=== PATIENT | female | born 1995 | race Caucasian/White ===

== ENCOUNTER 2016-10-05 16:22 | Emergency (ER) | payer MEDICAID ==
[2016-10-05 17:40] LABS: APPEARANCE CLEAR (CLEAR); COLOR YELLOW (YELLOW); GLUCOSE NEGATIVE (NEGATIVE); KETONE NEGATIVE (NEGATIVE); LEUKOCYTE ESTERASE TRACE (NEGATIVE); NITRITE NEGATIVE (NEGATIVE); PROTEIN NEGATIVE (NEGATIVE); UROBILINOGEN NORMAL (NORMAL)
[2016-10-05 17:41] LABS: BACTERIA FEW /hpf (NONE SEEN); BILIRUBIN NEGATIVE (NEGATIVE); EPITHELIAL CELLS 0-5 /hpf (0-5); RED CELLS - URINE OCC /hpf (0-5); WHITE CELLS - URINE 0-5 /hpf (0-5)
[2016-10-05 17:52] LABS: BASOPHILS 0.1 % (0.0-2.0); EOSINOPHILS 1.7 % (0-7); HEMOGLOBIN 11.5 g/dL (12-16); IMMATURE GRANULOCYTES 0.5 % (0-5); LYMPHOCYTES 20.8 % (15-50); MCH 29.3 pg (26.0-34.0); MCHC 33.8 g/dL (31.0-37.0); MCV 86.5 fL (80.0-100.0); MEAN PLATELET VOLUME 9.2 fL (7.4-10.4); MONOCYTES 6.8 % (2-11); NEUTROPHILS 70.1 % (40-80); PLATELET COUNT 224 10x3/uL (130-400); RBC 3.93 10x6/uL (4.00-5.40); RDW 14.3 % (11.5-14.5); WBC 10.8 10x3/uL (4.8-10.8)
== END 2016-10-05 18:53 | disposition left against medical advice (07) ==
LOC: D.ER 16:22
PROVIDERS: Emergency Medicine; Physician Assistant
DX: N93.9 Abnormal uterine and vaginal bleeding, unspecified (principal)

== ENCOUNTER → 2016-12-28 11:08 | Outpatient (CLI) | payer MEDICAID ==
--- NOTE | 2016-12-28 15:14 | NUR ---
Nutrition education for RANDEE: Pt, spouse and children present for instruction. pt reports drinking mostly water with a little soda now and then. 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 Pt usually eats nonstarchy vegetables with one meal a day. Pt does like sweet foods and savory foods but tries to limit the amount she eats. Pt does not get much exercise outside of work. Reviewed CHO foods and the affect CHO have on glucose. Stressed the importance of eating meals at consistent times along with portion control to keep glucose under good control. Reviewed portion sizes of common CHO foods. Reviewed sample menus with emphasis on CHO foods. Pt with good understanding of meal planning. Reviewed glucose numbers; when to check glucose; how to log glucose readings for physician review. Pt has not received a glucometer at this time; however, it has been ordered. Pt with understanding of glucose numbers. Provided pt with printed diet information and RDN name and phone number. Pt with good understanding of information provided. RDN will be available if needed. Thank you for the consult.
== END | disposition home or self-care (01) ==
LOC: D.FANS 10:30
DX: O24.419 Gestational diabetes mellitus in pregnancy, unspecified control (principal)

== ENCOUNTER → 2017-01-20 14:49 | Outpatient (CLI) | payer MEDICAID | END | disposition home or self-care (01) | LOC: D.LDO 14:49 | DX: Z34.93 Encounter for supervision of normal pregnancy, unspecified, third trimester (principal); Z3A.33 33 weeks gestation of pregnancy; M79.605 Pain in left leg ==

== ENCOUNTER → 2017-02-11 14:00 | Outpatient (CLI) | payer MEDICAID ==
[2017-02-11 14:35] LABS: APPEARANCE CLEAR (CLEAR); BACTERIA FEW /hpf (NONE SEEN); BILIRUBIN NEGATIVE (NEGATIVE); COLOR YELLOW (YELLOW); GLUCOSE NEGATIVE (NEGATIVE); KETONE NEGATIVE (NEGATIVE); LEUKOCYTE ESTERASE TRACE (NEGATIVE); NITRITE NEGATIVE (NEGATIVE); PROTEIN NEGATIVE (NEGATIVE); RED CELLS - URINE 0-5 /hpf (0-5); SPECIFIC GRAVITY 1.005 (1.005-1.020); UROBILINOGEN NORMAL (NORMAL)
== END | disposition home or self-care (01) ==
LOC: D.LDO 14:00
PROVIDERS: Obstetrics & Gynecology
DX: Z34.83 Encounter for supervision of other normal pregnancy, third trimester (principal); Z3A.36 36 weeks gestation of pregnancy; R10.9 Unspecified abdominal pain; M54.9 Dorsalgia, unspecified

== ENCOUNTER → 2017-02-20 15:48 | Outpatient (CLI) | payer MEDICAID | END | disposition home or self-care (01) | LOC: D.LDO 15:48 | DX: O24.913 Unspecified diabetes mellitus in pregnancy, third trimester (principal); Z3A.37 37 weeks gestation of pregnancy ==

== ENCOUNTER → 2017-02-23 11:40 | Outpatient (CLI) | payer MEDICAID | END | disposition home or self-care (01) | LOC: D.LDO 11:40 | DX: O24.419 Gestational diabetes mellitus in pregnancy, unspecified control (principal); Z3A.37 37 weeks gestation of pregnancy ==

== ENCOUNTER → 2017-02-28 21:26 | Outpatient (CLI) | payer MEDICAID | END | disposition home or self-care (01) | LOC: D.LDO 21:26 | DX: O24.913 Unspecified diabetes mellitus in pregnancy, third trimester (principal); Z3A.38 38 weeks gestation of pregnancy ==

== ENCOUNTER → 2017-03-02 11:54 | Outpatient (CLI) | payer MEDICAID ==
[2017-03-02 13:11] LABS: APPEARANCE HAZY (CLEAR); BILIRUBIN NEGATIVE (NEGATIVE); COLOR YELLOW (YELLOW); GLUCOSE NEGATIVE (NEGATIVE); KETONE NEGATIVE (NEGATIVE); LEUKOCYTE ESTERASE 1+ (NEGATIVE); NITRITE NEGATIVE (NEGATIVE); PROTEIN NEGATIVE (NEGATIVE); UROBILINOGEN NORMAL (NORMAL)
[2017-03-02 13:12] LABS: BACTERIA MODERATE /hpf (NONE SEEN); RED CELLS - URINE NONE SEEN /hpf (0-5); WHITE CELLS - URINE 0-5 /hpf (0-5)
== END | disposition home or self-care (01) ==
LOC: D.LDO 11:54
PROVIDERS: Obstetrics & Gynecology
DX: O26.893 Other specified pregnancy related conditions, third trimester (principal); Z3A.38 38 weeks gestation of pregnancy; R10.30 Lower abdominal pain, unspecified; N89.8 Other specified noninflammatory disorders of vagina

== ENCOUNTER 2017-03-04 18:51 | Inpatient (IN) | payer MEDICAID ==
[~2017-03-04] VITALS: Ht 170.2 cm; Wt 103.0 kg
[2017-03-04 20:07] LABS: BASOPHILS 0.2 % (0-2); EOSINOPHILS 1.2 % (0-7); HEMATOCRIT 32.5 % (36.0-48.0); HEMOGLOBIN 10.3 g/dL (12-16); IMMATURE GRANULOCYTES 0.6 % (0-5); LYMPHOCYTES 18.6 % (15-50); MCH 26.6 pg (26.0-34.0); MCHC 31.7 g/dL (31.0-37.0); MEAN PLATELET VOLUME 9.9 fL (7.4-10.4); MONOCYTES 7.7 % (2-11); NEUTROPHILS 71.7 % (40-80); PLATELET COUNT 224 10x3/uL (130-400); RBC 3.87 10x6/uL (4.00-5.40); RDW 15.6 % (11.5-14.5); WBC 15.2 10x3/uL (4.8-10.8)
[2017-03-04 20:09] LABS: APPEARANCE HAZY (CLEAR); COLOR YELLOW (YELLOW)
[2017-03-04 20:10] LABS: BILIRUBIN NEGATIVE (NEGATIVE); GLUCOSE NEGATIVE (NEGATIVE); KETONE NEGATIVE (NEGATIVE); LEUKOCYTE ESTERASE NEGATIVE (NEGATIVE); NITRITE NEGATIVE (NEGATIVE); PH 7.5 (5.0-6.0); PROTEIN NEGATIVE (NEGATIVE); SPECIFIC GRAVITY 1.005 (1.005-1.020); UROBILINOGEN NORMAL (NORMAL)
[2017-03-04 21:45] VITALS: BP 138/79; Ht 170.2 cm; Wt 103.0 kg
[2017-03-05 03:03] VITALS: BP 115/62
--- NOTE | 2017-03-05 03:27 | NUR ---
PT AMBULATES TO CLEAN PP ROOM FROM LDR [id number]. SEE CPN FOR PREVIOUS PT CHARTING. PT WAS ABLE TO VOID, PT CLEANED SELF AND AMBULATED TO ROOM 1273. ROOM ORIENTATION PROVIDED. WATER MUG PROVIDED TO PT. PT DENIES ANY NEEDS AT THIS TIME. BED IN LOW POSITION, SIDE RAILS UP TIMES 2, CALL LIGHT AND PHONE IN REACH. SO REMAINS AT PT BS FOR SUPPORT AND ASSISTANCE. WILL CONT TO MONITOR PT STATUS.
--- NOTE | 2017-03-05 04:34 | NUR ---
PT CALLS, C/O PAIN, REQUESTS MEDICATION, RATES PAIN 03/13. 1 TAB NORCO 5 PROVIDED TO PT AT THIS TIME WITH FRESH WATER MUG. PT DENIES ANY FURTHER NEEDS.BED IN LOW POSITION, SIDE RAILS UP TIMES 2, CALL LIGHT AND PHONE IN REACH. SO REMAINS AT PT BS FOR SUPPORT AND ASSISTANCE. WILL CONT TO MONITOR PT STATUS.
--- NOTE | 2017-03-05 06:51 | NUR ---
RN CALLED TO PT BS. PT C/O CRAMPING WITH , ASKS IF IT WAS NORMAL. DISCUSSED WITH PT REASON CRAMPING HAPPENS WITH . PT DENIES ANY FURTHER NEEDS AT THIS TIME. BED IN LOW POSITION, SIDE RAILS UP TIMES 2, CALL LIGHT AND PHONE IN REACH. WILL CONT TO MONITOR PT STATUS AND GIVE REPORT TO AM SHIFT.
[2017-03-05 07:36] VITALS: BP 118/75
--- NOTE | 2017-03-05 07:58 | NUR ---
SHOWER COMPLETED. PT SAYS SHE FEELS BETTER NOT. FINISHED BREAKFAST. TO ROOM FOR FEEDING. ID BAND MATCH WITH 'S MOTHER. FOB IN ROOM. DENIES NEEDING ANYTHING FURTHER AT THIS TIME. TO CALL IF ANYTHING IS NEEDED INCLUDING PAIN MEDICATION. SIDE RAILS UP X 2, CALL LIGHT IN REACH. PARTIAL LINEN CHANGE COMPLETED.
--- NOTE | 2017-03-05 09:50 | NUR ---
SLEEPING ON RIGHT SIDE. RESPIRATIONS EVEN. IN CRIB SLEEPING, RESPIRATIONS OBSERVED. FOB SLEEPING ON COUCH. SIDE RAILS UP X 2. CALL LIGHT WITHIN REACH.
[2017-03-05 10:18] LABS: BASOPHILS 0.1 % (0-2); EOSINOPHILS 0.7 % (0-7); HEMATOCRIT 29.6 % (36.0-48.0); HEMOGLOBIN 9.4 g/dL (12-16); IMMATURE GRANULOCYTES 0.4 % (0-5); LYMPHOCYTES 17.2 % (15-50); MCH 26.6 pg (26.0-34.0); MCHC 31.8 g/dL (31.0-37.0); MCV 83.6 fL (80.0-100.0); MEAN PLATELET VOLUME 9.7 fL (7.4-10.4); MONOCYTES 7.2 % (2-11); NEUTROPHILS 74.4 % (40-80); PLATELET COUNT 188 10x3/uL (130-400); RBC 3.54 10x6/uL (4.00-5.40); RDW 15.7 % (11.5-14.5); WBC 16.1 10x3/uL (4.8-10.8)
--- NOTE | 2017-03-05 10:53 | NUR ---
CALLED TO ROOM BY PATIENT. REQUESTED REMOVAL OF SALINE LOCK. CBC RESULTS WNL FOR PP. SALINE LOCK DC'D WITH TIP INTACT. NO OTHER REQUESTS AT THIS TIME. INFANT IN NURSERY, FOB ASLEEP ON COUCH. UP TO BATHROOM TO VOID.
--- NOTE | 2017-03-05 12:19 | NUR ---
NORCO 5 MG GIVEN PO PER REQUEST OF PATIENT FOR C/O 03/13 BACK PAIN. STATES "IT'S ALWAYS A 7" IN REGARDS TO TIME WHEN BACK HURTS. HAS WRITTEN DC INSTRUCTIONS AND PRESCRIPTIONS. WAITING ON DC.
--- NOTE | 2017-03-05 12:19 | NUR ---
PT IN HIGH FOWLERS POSITION HOLDING INFANT. FOB AT BEDSIDE. PT REPORTS PAIN IN BACK AND ABDOMEN 6/10 AND REQUESTS PAIN MEDICATION. NORCO 5/325MG AND MOTRIN 600MG GIVEN PO. FRESH WATER PROVIDED AND PT DENIES FURTHER NEEDS AT THIS TIME.
--- NOTE | 2017-03-05 12:35 | NUR ---
DC'D VIA WHEELCHAIR TO CAR. IN CAR SEAT. FOB PRESENT IN LOBBY TO CHEMIC MANGLER PT. ALL BELONGSINGS REMOVED FROM ROOM.
--- NOTE | 2017-03-05 13:50 | NUR ---
RETURNED TO ROOM AFTER AMBULATING. NO ADDITIONAL REQUESTS. PAIN IMPROVED TO 3/10. INFANT WITH NURSERY. FOB PRESENT IN ROOM.
--- NOTE | 2017-03-05 15:02 | NUR ---
SITTING UP IN ROOM. IN ARMS BOTTLEFEEDING. VISITORS AND FOB AT BEDSIDE. TO CALL IF ANYTHING IS NEEDED.
--- NOTE | 2017-03-05 16:42 | NUR ---
RETURNED FROM AMBULATING IN [place]. TO ROOM WITH PT. NO REQUESTS AT THIS TIME.
--- NOTE | 2017-03-05 18:02 | NUR ---
SLEEPING ON LEFT SIDE. RESP EVEN. FOB SLEEPING ON COUCH. INFANT SLEEPING IN CRIB, RESP EVEN. SIDE RAILS UP X 2, CALL LIGHT IN REACH.
[2017-03-05 19:21] VITALS: BP 109/55
--- NOTE | 2017-03-05 19:27 | NUR ---
RN TO PT BS FOR [place]. PT RESTING IN BED IN RIGHT LATERAL POSITION, WITH EYES CLOSED, IN NO ACUTE DISTRESS. RESPIRATIONS EVEN AND UNLABORED. PT AWAKENS EASILY WHEN SPOKEN TO. PT IS A 21 YO G3NOW P3 WITH OF VIABLE MALE INFANT TODAY @ 0043. @ 39.1 WKS GESTATION. PT WITH SUPERFICIAL LACERATION AND NO REPAIR. AAOX3. HR REGULAR. LUNGS CTAB. ABDOMEN SOFT AND NON TENDER. BS ACTIVE TIMES 4. FUNDUS FIRM AND ML @ U/-1. LOCHIA RUBRA SCANT. AMIRA PAD AND PANTIES IN PLACE. PERINIUM APPEARS TO BE INTACT WITH MINIMAL SWELLING NOTED. PT DENIES DIFFICULTY VOIDING. STATES SHE HAS PASSED GAS BUT HAS NOT HAD A BM SINCE . NO SWELLING NOTED TO UPPER OR LOWER EXTREMITIES BILATERALLY. NO IV ACCESS. PT C/O PAIN RATES 2/10, DENIES THE NEED FOR PAIN MEDICATION AT THIS TIME. PT TOLERATING REGULAR DIET. WATER MUG REFRESHED. PT DENIES ANY FURTHER NEEDS. BED IN LOW POSITION, SIDE RAILS UP TIMES 2, CALL LIGHT AND PHONE IN REACH. SO REMAINS AT PT BS FOR SUPPORT AND ASSISTANCE. WILL CONT TO MONITOR PT STATUS.
--- NOTE | 2017-03-05 21:05 | NUR ---
RN TO PT BS FOR ROUNDS. PT SITTING IN BED ATTEMPTING TO FEED . PT EXPRESSES CONCERNS ABOUT FEEDING. RN BOTTLE FED 27ML SIMILAC WITH MODERATE ENCOURAGEMENT. PT DENIES ANY NEEDS AT THIS TIME. BED IN LOW POSITION, SIDE RAILS UP TIMES 2, CALL LIGHT AND PHONE IN REACH. INFANT REMAINS AT PT BS FOR COUPLET CARE. NURSERY RN GIVEN REPORT ON BOTTLE FEED.
--- NOTE | 2017-03-05 21:36 | NUR ---
PT AMBULATING IN [place] TO NUTRITION CENTER. PT C/O PAIN, RATES 7/10, REQUESTS MEDICATION. 1 TAB IBUPROFEN AND 1 TAB NORCO 5 PROVIDED TO PT AT THIS TIME. PT DENIES ANY FURTHER NEEDS AT THIS TIME. WILL CONT TO MONITOR PT STATUS.
--- NOTE | 2017-03-06 00:22 | NUR ---
RN TO PT BS FOR ROUNDS. PT RESTING IN BED IN SEMI-FOWLERS POSITION, WITH EYES CLOSED, IN NO ACUTE DISTRESS. RESPIRATIONS EVEN AND UNLABORED. BED IN LOW POSITION, SIDE RAILS UP TIMES 2, CALL LIGHT AND PHONE IN REACH. SO REMAINS AT PT BS FOR SUPPORT AND ASSISTANCE. WILL CONT TO MONITOR PT STATUS.
--- NOTE | 2017-03-06 02:32 | NUR ---
ROUNDS MADE. PT LAYING ON RIGHT SIDE RESTING WITH EYES CLOSED. RESPIRATIONS REGULAR AND UNLABORED. NO S/S OF DISTRESS NOTED. S/O SLEEPING ON COUCH IN ROOM. BED IN LOW POSITION WITH UPPER SIDE RAILS RAISED X2. CL AND PHONE WITHIN PT REACH. WILL CONT TO MONITOR AND ASSIST PRN.
--- NOTE | 2017-03-06 03:10 | NUR ---
RN TO PT BS FOR ROUNDS. PT RESTING IN BED IN RIGHT LATERAL POSITION, WITH EYES CLOSED, IN NO ACUTE DISTRESS. RESPIRATIONS EVEN AND UNLABORED. BED IN LOW POSITION, SIDE RAILS UP TIMES 2, CALL LIGHT AND PHONE IN REACH. SO REMAINS AT PT BS FOR SUPPORT AND ASSISTANCE. WILL CONT TO MONITOR PT STATUS.
--- NOTE | 2017-03-06 04:09 | NUR ---
ROUNDS MADE. PT IN SEMI FOWLERS POSITION RESTING WITH EYES CLOSED. RESPIRATIONS REGULAR AND UNLABORED. NO S/S OF DISTRESS NOTED. S/O SLEEPING ON COUCH AT BEDSIDE. BED IN LOW POSITION WITH UPPER SIDE RAILS RAISED X2. CL AND PHONE WITHIN PT REACH. WILL CONT TO MONITOR AND ASSIST PRN.
--- NOTE | 2017-03-06 05:32 | NUR ---
RN TO PT BS FOR ROUNDS. PT RESTING IN BED IN RIGHT LATERAL POSITION, WITH EYES CLOSED, IN NO ACUTE DISTRESS. RESPIRATIONS EVEN AND UNLABORED. BED IN LOW POSITION, SIDE RAILS UP TIMES 2, CALL LIGHT AND PHONE IN REACH. SO REMAINS AT PT BS FOR SUPPORT AND ASSISTANCE. WILL CONT TO MONITOR PT STATUS AND GIVE REPORT TO AM SHIFT.
[2017-03-06 07:40] VITALS: BP 118/78
--- NOTE | 2017-03-06 07:40 | NUR ---
THIS RN TO ROOM FOR SHIFT ASSESSMENT. PT SITTING UP IN BED HOLDING . SHIFT ASSESSMENT COMPLETED, VSS, SEE FLOWSHEET FOR DOC. PT RATES PAIN 5/10 IN ABD, CRAMPING, AND BACK PAIN/SORENESS AT EPIDURAL SITE. PT DENIES CONCERNS WITH BLEEDING, HEAVY LOCHIA AND WHAT TO REPORT DISCUSSED WITH PT. SHOWER AND LINEN CHANGE DISCUSSED WITH PT, WELL POSSIBLE DISCHARGE TODAY OR ROOMING IN. PT VERBALIZES UNDERSTANDING. PT REQUEST PAIN MED, MILK FOR CEREAL, AND PERIPADS. WILL RETURN.
--- NOTE | 2017-03-06 07:52 | NUR ---
PT ADMIN PRN IBUPROFEN ORDERED, SEE EMAR FOR DOC. PT PROVIDED WITH FRESH ICE WATER WITH MED, MILK FOR CEREAL, AND PERIPADS AND PANTIES. TRASH IN ROOM TAKEN OUT, WELL BREAKFAST TRAY. TOWELS AND CLEAN GOWN PROVIDED TO PT FOR SHOWER, INSTRUCTED TO NOTIFY RN WHEN SHE GETS UP TO SHOWER SO BED LINENS CAN BE CHANGED. UNDERSTANDING VERBALIZES. SRUx2, CL IN REACH.
--- NOTE | 2017-03-06 08:15 | NUR ---
PT AMBULATING IN [place], STATES SHE IS ABOUT TO GET IN SHOWER. THIS RN TO ROOM, PT DENIES NEED FOR ANY SHOWER SUPPLIES OR ASSISTANCE. BED LINENS CHANGED. PT SHOWERING, WILL CONT TO MONITOR.
--- NOTE | 2017-03-06 11:01 | NUR ---
PT CALLS OUT [employer] LIGHT REQUESTING PAIN MEDICAITON FOR BACK PAIN. PT ADMIN PRN NORCO ORDERED, SEE EMAR FOR DOC. PT PROVIDED WITH FRESH ICE WATER, DENIES FURTHER NEEDS. SRUx2, CL IN REACH. WILL CONT TO MONITOR.
--- NOTE | 2017-03-06 12:15 | NUR ---
PT LYING IN BED ON BACK, TEXTING ON PHONE. PT DENIES NEEDS, REPORTS PAIN IS MUCH BETTER. RATES PAIN 2/10 IN BACK AT THIS TIME. SRUx2, CL IN REACH. WILL CONT TO MONITOR.
--- NOTE | 2017-03-06 14:30 | NUR ---
PT AMBULATING ON UNIT, FROM PT ROOM TO NSY. PT DENIES PAIN OR NEEDS. WILL CONT TO MONITOR.
[2017-03-06] MEDS ORDERED: MOTRIN600 MG PO (16:46)
--- NOTE | 2017-03-06 17:50 | NUR ---
PT GIVEN WRITTEN PRESCRIPTIONS FOR PAIN CONTROL POST D/C TO HOME, WELL D/C INSTRUCTIONS. QUESTIONS ANSWERED, PT VERBALIZES UNDERSTANDING. PT REFUSES W/C, OFF UNIT AMBULATORY, INSTRUCTIONS IN HAND. FOB TO DRIVE HOME.
[2017-03-07 06:11] LABS: RAPID PLASMA REAGIN Non Reactive (Non Reactive)
== END 2017-03-06 17:50 | disposition home or self-care (01) | DRG 775 ==
LOC: D.LDO 18:51 → D.LD 21:13
PROVIDERS: ADMIT Obstetrics & Gynecology
PROC: 10907ZC Drainage of Amniotic Fluid, Therapeutic from Products of Conception, Via Natural or Artificial Opening (ICD-10-PCS; 2017-03-04)
PROC: 10E0XZZ Delivery of Products of Conception, External Approach (ICD-10-PCS; principal; 2017-03-05)
DX: O24.420 Gestational diabetes mellitus in childbirth, diet controlled (principal); Z3A.39 39 weeks gestation of pregnancy; Z37.0 Single live birth; O99.214 Obesity complicating childbirth; O99.344 Other mental disorders complicating childbirth; F41.9 Anxiety disorder, unspecified; F31.9 Bipolar disorder, unspecified

== ENCOUNTER 2018-02-09 12:52 | Emergency (ER) | payer MEDICAID ==
[~2018-02-09] VITALS: Ht 170.2 cm; Wt 102.7 kg
[~2018-02-09 12:52] MED LIST: MOTRIN600 MG PO
[2018-02-09 13:02] VITALS: Ht 170.2 cm; Wt 102.7 kg
[2018-02-09] MEDS ORDERED: LISINOPRIL5 MG PO (13:04)
[2018-02-09 13:43] LABS: APPEARANCE CLEAR (CLEAR); BILIRUBIN NEGATIVE (NEGATIVE); COLOR YELLOW (YELLOW); GLUCOSE NEGATIVE (NEGATIVE); KETONE NEGATIVE (NEGATIVE); NITRITE NEGATIVE (NEGATIVE); PROTEIN NEGATIVE (NEGATIVE); UROBILINOGEN NORMAL (NORMAL)
[2018-02-09] MEDS ORDERED: ALDOMET250 MG PO (14:59)
[2018-02-09 15:04] VITALS: BP 120/68
== END 2018-02-09 15:03 | disposition home or self-care (01) ==
LOC: D.ER 12:52
PROVIDERS: Family Medicine
DX: O23.40 Unspecified infection of urinary tract in pregnancy, unspecified trimester (principal); Z3A.00 Weeks of gestation of pregnancy not specified; R35.0 Frequency of micturition; I10 Essential (primary) hypertension; R30.0 Dysuria; E11.9 Type 2 diabetes mellitus without complications; Z86.59 Personal history of other mental and behavioral disorders; F17.200 Nicotine dependence, unspecified, uncomplicated

== ENCOUNTER 2018-12-07 05:05 | Day surgery (SDC) | payer MEDICAID ==
[2018-12-05 14:45] LABS: BASOPHILS 0.2 % (0-2); EOSINOPHILS 5.3 % (0-7); HEMATOCRIT 39.8 % (36.0-48.0); HEMOGLOBIN 13.6 g/dL (12-16); IMMATURE GRANULOCYTES 0.2 % (0-5); LYMPHOCYTES 40.3 % (15-50); MCH 29.4 pg (26.0-34.0); MCHC 34.2 g/dL (31.0-37.0); MCV 86.1 fL (80.0-100.0); MEAN PLATELET VOLUME 9.3 fL (7.4-10.4); MONOCYTES 4.8 % (2-11); NEUTROPHILS 49.2 % (40-80); RBC 4.62 10x6/uL (4.00-5.40); RDW 12.9 % (11.5-14.5); WBC 8.8 10x3/uL (4.8-10.8)
[2018-12-05 14:47] LABS: PLATELET COUNT 268 10x3/uL (130-400)
[~2018-12-07] VITALS: Ht 348 cm; Wt 94.3 kg
[~2018-12-07 05:05] MED LIST changes: +ALDOMET250 MG PO; +LISINOPRIL5 MG PO
[2018-12-07 05:55] VITALS: BP 109/66; Ht 348 cm; Wt 94.3 kg
[2018-12-07 06:17] LABS: HCG URINE NEGATIVE (NEGATIVE)
--- NOTE | 2018-12-07 09:14 | NUR ---
20CC OF CLEAR YELLOW URIND FROM JONATAN @64
--- NOTE | 2019-01-02 10:30 | OP ---
PATIENT NAME: BRIAN LOMELI MEDICAL RECORD: [id number] :89 LOCATION:[facility] ADMISSION DATE: SURGEON: KACI LAMBERT MD DATE OF OPERATION: 12/07/2018 PREOPERATIVE DIAGNOSIS: Multiparity, the patient desires permanent sterility. POSTOPERATIVE DIAGNOSIS: Multiparity, the patient desires permanent sterility. PROCEDURE: Laparoscopic tubal ligation via bipolar cautery. SURGEON: Kaci Lambert ANESTHESIA: General by LMA. INTRAVENOUS FLUIDS: Per anesthesia records. ESTIMATED BLOOD LOSS: Minimal. SPECIMENS: None. COMPLICATIONS: None apparent. FINDINGS: Grossly normal-appearing fallopian tubes, ovaries, and uterus. PROCEDURE IN DETAIL: The patient was taken to the operating room, where general anesthesia was achieved without any difficulty. The patient was then prepped and draped in normal sterile fashion in the dorsal lithotomy position in the [facility]. Following prep and drape, the bladder was drained of approximately 50 cc of clear urine and a sponge stick was placed in the vagina for uterine elevation. Attention was then turned to the umbilicus, where a 5-mm incision was made in the inferior aspect and a 5-mm bladeless trocar was used to enter the intraperitoneal space under direct visualization of the laparoscope. Introducer was removed and the patient was insufflated and opening pressure was found to be less than 10 mmHg. The laparoscope was then introduced through the port site and intraperitoneal placement was visually confirmed. At this point, a second port was then placed in the midline. A 5-mm incision was made in the midline just superior to the pubic symphysis and a second 5-mm bladeless trocar was then used to enter the intraperitoneal space under direct visualization of the laparoscope. Survey of abdomen and pelvis was then performed. The fallopian tubes were identified, grasped in their midportion using the Gyrus bipolar cautery paddles, and an approximately 5-6 cm area of the bilateral fallopian tubes were completely burned using the bipolar cautery. Good hemostasis was noted from both sites. The patient was then desufflated and the trocars were removed. The skin was repaired with 3-0 Vicryl in an interrupted fashion. Sponge stick was removed from the vagina. The patient tolerated the procedure well. She was transferred to postanesthesia recovery stable without incident. TRANSINT:[id number] Voice Confirmation ID: [id number] DOCUMENT ID: [id number] OPERATIVE REPORT [id number] BRIAN LOMELI, KACI Orlando MD at 1030 CC: [id number] DICTATION DATE: 12/30/181709 RADARMAN: 12/30/18 1838 [facility] 12/07/18 [place] [id number] [place] [id number]
== END 2018-12-07 11:15 | disposition home or self-care (01) ==
LOC: D.OPS 05:05 → D.PAN 07:30 → D.OPS 07:30
PROVIDERS: ATTEND Obstetrics & Gynecology
DX: Z30.2 Encounter for sterilization (principal)

== ENCOUNTER 2020-03-05 15:25 | Emergency (ER) | payer MEDICAID ==
[~2020-03-05] VITALS: Ht 348 cm; Wt 77.3 kg
[2020-03-05 15:40] VITALS: BP 101/73; Ht 348 cm; Wt 77.3 kg
== END 2020-03-05 16:27 | disposition home or self-care (01) ==
LOC: D.ER 15:25
DX: M54.9 Dorsalgia, unspecified (principal); V89.2XXA Person injured in unspecified motor-vehicle accident, traffic, initial encounter; Y93.9 Activity, unspecified; Y92.9 Unspecified place or not applicable; I10 Essential (primary) hypertension; Z72.0 Tobacco use